=== PATIENT | male | born 2000 | race Caucasian/White ===

== ENCOUNTER 2024-04-17 08:35 | Outpatient (AMB) | payer OTHER, SELFPAY ==
--- NOTE | 2024-04-17 08:41 | MHC.OFFWIV ---
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 Started 3 weeks ago Patient Tobacco Use Status: Never used Tobacco Allergies No Known Allergies Allergy (Verified 04/17/24 08:41) Do you need a note to return to daycare/school/sports/work: Yes HPI HPI Comments History of Present Illness Details Patient is a 23-year-old male with 2 complaints. First, he has an itchy rash on the left side of his neck that is now spreading to the right side of his neck. He [place] but he does not remember coming in contact with any trees or leaves. He has not tried anything to make it better, nothing seems to make it worse. His 2nd complaint is that he would like STD testing because he has had unprotected sex and he just wants to make sure he is clean. He denies any unusual discharge from his penis or any urinary complaints. [facility] Social History Patient Tobacco Use Status: Never used Tobacco Review of Systems Const All systems reviewed & are unremarkable except as noted in HPI and below Physical Exam Vital Signs: Last Vital Signs Temp 98.3 F 04/17/24 08:42 Pulse 75 04/17/24 08:42 BP 108/72 04/17/24 08:42 Pulse Ox 98 04/17/24 08:42 BMI result Body Mass Index 19.8 Const General: cooperative, healthy appearing, comfortable and no acute distress Orientation/consciousness: patient oriented x3 Limitations: no limitations HEENT Head: Yes normal to inspection Eyes General: appearance normal, both eyes and all related structures Resp Effort & Inspection: normal respiratory effort and able to speak in complete sentences Skin Other: A streaky, linear maculopapular 3cm x3cm rash with crusted lesions on left side of neck, 2cm x 3cm similar patch on right side of neck Neuro General: patient oriented x3 Assessment & Plan Assessment & Plan (1) Unprotected sexual intercourse: Code(s): Z72.51 - High risk heterosexual behavior Plan: CT/NG test sent (2) Allergic dermatitis: Code(s): L23.9 - Allergic contact dermatitis, unspecified cause Plan: Educated patient on the use of clobetasol, recommended he wash his sweat shirt and shirts daily to avoid spreading it further. Plan See above Orders: Orders CT NG by PCR Today Z72.51 - High risk heterosexual behavior Medications: New clobetasol 0.05% Do not apply to hands, face or genital area 1 appl topical BID 1 week 30 grams 0RF Coding Level of Care Code New Pt Level 4 (04172) Diagnoses Unprotected sexual intercourse Z72.51 Allergic dermatitis L23.9
[2024-04-17 08:42] VITALS: BP 108/72; PULSE 75; TEMP 36.8; O2SAT 98; BMI 19.8
== END 2024-04-17 09:22 | disposition home or self-care (01) ==
PROVIDERS: Visit Provider Physician Assistant
DX: Z72.51 High risk heterosexual behavior (principal); L23.9 Allergic contact dermatitis, unspecified cause
CPT/HCPCS: 99204

== ENCOUNTER 2024-04-17 09:07 | Outpatient (REF) | payer OTHER, SELFPAY ==
[2024-04-17 11:59] LABS: CT PCR DETECTED (Not Detect.); NG PCR NOT DETECTED (Not Detect.)
== END 2024-04-17 09:08 | disposition home or self-care (01) ==
LOC: HO.LAB 09:07
PROVIDERS: Visit Provider Physician Assistant
DX: Z72.51 High risk heterosexual behavior (principal)
CPT/HCPCS: 87491; 87591